=== PATIENT | female | born 1970 | race Caucasian/White ===

== ENCOUNTER 2022-09-26 05:30 | Day surgery (SDC) | payer BC ==
[2022-09-26] MEDS ORDERED: Indocyanine Green 25 MG SDV IV SCH (06:00)
[2022-09-26] MEDS ORDERED: Sodium Chloride 0.9% 1,000 ML IV SCH (06:00)
[2022-09-26] MEDS ORDERED: Acetaminophen 500 MG Tab PO ONE (06:15)
[2022-09-26] MEDS ORDERED: Bupivacaine 0.5%/EPINEPHrine 1:200,000 50 ML MDV ONE (06:22)
[2022-09-26] MEDS ORDERED: fentaNYL 250 MCG/5 ML SDV ONE ×2 (07:17→08:04)
[2022-09-26] MEDS ORDERED: Succinylcholine 200 MG/10 ML MDV ONE (07:18)
[2022-09-26] MEDS ORDERED: Propofol 200 MG/20 ML SDV ONE (07:18)
[2022-09-26] MEDS ORDERED: Rocuronium 50 MG/5 ML Vial ONE (07:18)
[2022-09-26] MEDS ORDERED: Ondansetron 4 MG/2 ML SDV ONE (07:18)
[2022-09-26] MEDS ORDERED: Neostigmine Methylsulfate 1 MG/ML 5 ML Syringe ONE (07:18)
[2022-09-26] MEDS ORDERED: Glycopyrrolate 0.2 MG/ML 5 ML MDV ONE (07:18)
[2022-09-26] MEDS ORDERED: Dexamethasone 4 MG/ML SDV ONE (07:18)
[2022-09-26] MEDS ORDERED: cefTRIAXone 2 GM in Sodium Chloride 0.9% 50 ML IV ONE (07:30)
[2022-09-26] MEDS ORDERED: metroNIDAZOLE/Normal Saline 500 MG in Premix Bag 1 BAG IV ONE (08:30)
[2022-09-26] MEDS ORDERED: Acetaminophen/HYDROcodone 325-5 MG Tab PO PRN (10:23)
== END 2022-09-26 11:40 | disposition home or self-care (01) ==
LOC: JP.SDS 05:30 → EDSTATUS 07:30 → JP.SDS 11:40
PROVIDERS: ATTEND Student in an Organized Health Care Education/Training Program
DX: K80.20 Calculus of gallbladder without cholecystitis without obstruction (principal); K82.8 Other specified diseases of gallbladder; K80.10 Calculus of gallbladder with chronic cholecystitis without obstruction; E78.89 Other lipoprotein metabolism disorders; E66.9 Obesity, unspecified; R74.8 Abnormal levels of other serum enzymes; Z68.30 Body mass index [BMI] 30.0-30.9, adult; Z87.891 Personal history of nicotine dependence; Z79.899 Other long term (current) drug therapy; Z98.890 Other specified postprocedural states
CPT/HCPCS: 47562; A9270; J0330; J0696; J1100; J2405; J2704; J2710; J3010; J3490; J7030

== ENCOUNTER 2025-04-24 06:37 | Day surgery (SDC) | payer BC ==
[2025-04-24] MEDS ORDERED: Midazolam 1 MG/ML 2 ML SDV ONE (07:24)
[2025-04-24] MEDS ORDERED: Propofol 200 MG/20 ML SDV ONE (07:24)
[2025-04-24] MEDS ORDERED: fentaNYL 50 MCG/ML SDV ONE (07:24)
[2025-04-24] MEDS: Lactated Ringers 1,000 ML IV SCH (07:30)
== END 2025-04-24 09:29 | disposition home or self-care (01) ==
LOC: JP.SDS 06:37
PROVIDERS: ATTEND Surgery
DX: Z12.11 Encounter for screening for malignant neoplasm of colon (principal); K63.5 Polyp of colon; Z87.891 Personal history of nicotine dependence; Z79.899 Other long term (current) drug therapy
CPT/HCPCS: 00811; 45380; 88305; J2250; J2704; J3010; J7120